=== PATIENT | male | born 1960 | race Caucasian/White ===

== ENCOUNTER → 2021-09-23 | Outpatient (CLI) | payer OTHER ==
--- NOTE | 2021-09-23 10:45 | RAD ---
3 views left knee 09/23/2021 9:37 AM Indication: Left knee pain Comparison: None Findings: There is no acute fracture or dislocation. Articular surfaces are uninterrupted. There is m oderate to severe medial compartment joint space narrowing with underlying subchondral sclerosis. Med ial and lateral compartment osteophytosis noted. No joint effusion is seen. Dense calcification of th e superficial femoral, popliteal, and proximal tibial arteries noted. IMPRESSION: 1. Moderate to severe osteoarthritis of the left knee 2. Extensive peripheral arterial calcification Electronically signed by: Alan Bain MD (09/23/2021 10:43 AM) [id number]
== END ==
LOC: RAD 09:21
PROVIDERS: ATTEND Family Medicine
DX: Z02.71 Encounter for disability determination (principal); M17.12 Unilateral primary osteoarthritis, left knee; I70.202 Unspecified atherosclerosis of native arteries of extremities, left leg; M25.762 Osteophyte, left knee
CPT/HCPCS: 73560